=== PATIENT | female | born 1945 | race Caucasian/White ===

== ENCOUNTER 2021-07-12 11:46 | Outpatient (CLI) | payer MEDICARE ==
[2021-07-12 13:25] LABS: #Basophils 0.1 10x3/uL (0.0-0.2); #Eosinphils 0.1 10x3/uL (0.0-0.5); #Monocytes 0.4 10x3/uL (0.0-1.1); #Neutrophils 2.7 10x3/uL (1.5-8.4); %Basophils 1.3 % (0.0-2.0); %Eosinophils 1.8 % (0.0-6.0); %Lymphocytes 39.9 % (18.0-47.0); %Monocytes 7.7 % (0.0-10.0); %Neutrophils 49.1 % (40.0-75.0); Hemoglobin 12.5 g/dL (12.0-15.5); Mean Corpuscular HGB CONC 31.7 g/dL (32.0-36.0); Mean Corpuscular Hemoglobin 32.1 pg (27.0-33.0); Mean Corpuscular Volume 101.3 fl (81.6-98.3); Mean Platelet Volume 9.2 fl (7.4-10.4); Platelet Count 313 10x3/uL (150-450); RBC Distribution Width 13.1 % (11.5-14.5); Red Blood Cell (RBC) Count 3.89 10x6/uL (3.90-5.03); White Blood Cell (WBC) Count 5.5 10x3/uL (3.5-10.5)
[2021-07-12 13:44] LABS: Anion Gap 14 mmol/L (10-20); BUN (Urea Nitrogen) 17 mg/dL (9.8-20.1); Calc. Creatinine Clearance 0 mL/min (70-130); Calcium 9.9 mg/dL (7.8-10.44); Carbon Dioxide 28 mmol/L (23-31); Chloride 107 mmol/L (98-107); Glucose 97 mg/dL (83-110); Potassium 5.2 mmol/L (3.5-5.1); Sodium 144 mmol/L (136-145)
[2021-07-13 01:42] LABS: SARS-CoV-2 PCR by NAA Not Detected (NotDetected)
== END 2021-07-12 11:47 | disposition home or self-care (01) ==
LOC: LABBT 11:46
PROVIDERS: ATTEND Specialist
DX: Z01.818 Encounter for other preprocedural examination (principal); K64.8 Other hemorrhoids; Z20.822 Contact with and (suspected) exposure to COVID-19
CPT/HCPCS: 71046; 80048; 85025; 93005; U0003; U0005; 93010

== ENCOUNTER 2021-07-17 10:16 | Day surgery (SDC) | payer MEDICARE ==
[2021-07-16 13:39] VITALS: BMI 24.4
[2021-07-17] MEDS ORDERED: Acetaminophen 500 MG TAB ONE (10:25)
[2021-07-17] MEDS ORDERED: Ketorolac Tromethamine 30 MG/ML VIAL ONE (10:26)
[2021-07-17] MEDS ORDERED: ceFAZolin 2 GM/DEX 5% 100 ML BAG ONE (10:26)
[2021-07-17] MEDS ORDERED: Bupivacaine 0.25% HCL 30 ML VIAL ONE (15:08)
[2021-07-17] MEDS ORDERED: Lidocaine 1% w/Epinephrine 1:100K 20 ML VIAL ONE (15:08)
[2021-07-17] MEDS ORDERED: Fentanyl 100 MCG/2 ML VIAL ONE (16:35)
[2021-07-17] MEDS ORDERED: Rocuronium Bromide 10 MG/ML (10ML VIAL) ONE (16:36)
[2021-07-17] MEDS ORDERED: PROPOFOL 200 MG/20 ML VIAL ONE (16:36)
[2021-07-17] MEDS ORDERED: Lidocaine 1% PF 5 ML VIAL ONE (16:36)
[2021-07-17] MEDS ORDERED: Ondansetron PF 4 MG/2 ML Vial ONE (16:36)
[2021-07-17] MEDS ORDERED: Dexamethasone 20 MG/5 ML VIAL ONE (16:36)
[2021-07-17] MEDS ORDERED: PHENYLEPHRINE-NS 100 MCG/ML 10 ML SYRINGE ONE (16:36)
[2021-07-17] MEDS ORDERED: SUGAMMADEX SODIUM 200 MG/2 ML VIAL ONE (16:46)
[2021-07-17] MEDS ORDERED: Meperidine HCl/PF 25 MG/ML VIAL ONE (17:52)
[2021-07-17] MEDS ORDERED: Promethazine HCl 25 MG/ML VIAL ONE (18:53)
[2021-07-17] MEDS ORDERED: Ondansetron ODT 4 MG TAB ONE (19:10)
== END 2021-07-17 19:43 | disposition home or self-care (01) ==
LOC: SDC 10:16
PROVIDERS: ATTEND Specialist
PROC: 06BY3ZC Excision of Hemorrhoidal Plexus, Percutaneous Approach (ICD-10-PCS; principal; 2021-07-17)
DX: K64.8 Other hemorrhoids (principal); Z88.1 Allergy status to other antibiotic agents; Z88.2 Allergy status to sulfonamides
CPT/HCPCS: J1100; J1885; J2175; J2405; J2550; J2704; J3010; Q0162; S0020

== ENCOUNTER 2021-08-15 13:37 | Outpatient (CLI) | payer MEDICARE ==
[2021-08-15 15:36] LABS: #Eosinphils 0.3 10x3/uL (0.0-0.5); #Monocytes 0.5 10x3/uL (0.0-1.1); #Neutrophils 4.9 10x3/uL (1.5-8.4); %Basophils 0.2 % (0.0-2.0); %Eosinophils 3.1 % (0.0-6.0); %Lymphocytes 30.2 % (18.0-47.0); %Monocytes 6.3 % (0.0-10.0); Hemoglobin 12.7 g/dL (12.0-15.5); Mean Corpuscular HGB CONC 31.8 g/dL (32.0-36.0); Mean Corpuscular Hemoglobin 32.2 pg (27.0-33.0); Mean Corpuscular Volume 101.5 fl (81.6-98.3); Mean Platelet Volume 9.1 fl (7.4-10.4); Platelet Count 314 10x3/uL (150-450); RBC Distribution Width 12.9 % (11.5-14.5); Red Blood Cell (RBC) Count 3.94 10x6/uL (3.90-5.03); White Blood Cell (WBC) Count 8.1 10x3/uL (3.5-10.5)
[2021-08-15 15:58] LABS: Anion Gap 12 mmol/L (10-20); BUN (Urea Nitrogen) 17 mg/dL (9.8-20.1); Calc. Creatinine Clearance 0 mL/min (70-130); Calcium 9.7 mg/dL (7.8-10.44); Carbon Dioxide 29 mmol/L (23-31); Chloride 104 mmol/L (98-107); Glucose 82 mg/dL (83-110); Sodium 140 mmol/L (136-145)
[2021-08-16 00:40] LABS: SARS-CoV-2 PCR by NAA Not Detected (NotDetected)
== END 2021-08-15 13:38 | disposition home or self-care (01) ==
LOC: LABBT 13:37
PROVIDERS: ATTEND Specialist
DX: Z01.818 Encounter for other preprocedural examination (principal); K40.20 Bilateral inguinal hernia, without obstruction or gangrene, not specified as recurrent; Z20.822 Contact with and (suspected) exposure to COVID-19
CPT/HCPCS: 71046; 80048; 85025; 93005; U0003; U0005; 93010

== ENCOUNTER 2021-08-21 13:36 | Outpatient (CLI) | payer MEDICARE ==
[2021-08-22 11:24] LABS: SARS-CoV-2 PCR by NAA Not Detected (NotDetected)
== END 2021-08-21 13:37 | disposition home or self-care (01) ==
LOC: LABBT 13:36
PROVIDERS: ATTEND Specialist
DX: Z01.812 Encounter for preprocedural laboratory examination (principal); K40.20 Bilateral inguinal hernia, without obstruction or gangrene, not specified as recurrent; Z20.822 Contact with and (suspected) exposure to COVID-19
CPT/HCPCS: U0003; U0005

== ENCOUNTER 2021-08-24 09:50 | Day surgery (SDC) | payer MEDICARE ==
[2021-08-16 14:42] VITALS: BMI 24.3
[2021-08-24] MEDS ORDERED: ceFAZolin 2 GM/DEX 5% 100 ML BAG ONE (11:22)
[2021-08-24] MEDS ORDERED: Acetaminophen 500 MG TAB ONE (11:23)
[2021-08-24] MEDS ORDERED: Ketorolac Tromethamine 30 MG/ML VIAL ONE ×2 (11:24→12:50)
[2021-08-24] MEDS ORDERED: Lidocaine 1% w/Epinephrine 1:100K 20 ML VIAL ONE (12:27)
[2021-08-24] MEDS ORDERED: Bupivacaine 0.25% 10 ML VIAL ONE ×2 (12:27)
[2021-08-24] MEDS ORDERED: Lidocaine 2% Jelly 5 ML TUBE ONE (12:35)
[2021-08-24] MEDS ORDERED: Midazolam HCl 2 mg/2 ml Vial ONE (12:35)
[2021-08-24] MEDS ORDERED: Fentanyl 100 MCG/2 ML VIAL ONE (12:35)
[2021-08-24] MEDS ORDERED: Dexamethasone 20 MG/5 ML VIAL ONE (12:50)
[2021-08-24] MEDS ORDERED: PHENYLEPHRINE-NS 100 MCG/ML 10 ML SYRINGE ONE (12:50)
[2021-08-24] MEDS ORDERED: Rocuronium Bromide 10 MG/ML (10ML VIAL) ONE (12:50)
[2021-08-24] MEDS ORDERED: Ondansetron PF 4 MG/2 ML Vial ONE (12:50)
[2021-08-24] MEDS ORDERED: PROPOFOL 200 MG/20 ML VIAL ONE (12:50)
[2021-08-24] MEDS ORDERED: Lidocaine 1% PF 5 ML VIAL ONE (12:50)
[2021-08-24] MEDS ORDERED: Glycopyrrolate 0.2 MG/ML 5 ML SYRINGE ONE (12:50)
[2021-08-24] MEDS ORDERED: Promethazine HCl 25 MG/ML VIAL ONE (17:21)
== END 2021-08-24 18:50 | disposition home or self-care (01) ==
LOC: SDC 09:50
PROVIDERS: ATTEND Specialist
PROC: 0YUA4JZ Supplement Bilateral Inguinal Region with Synthetic Substitute, Percutaneous Endoscopic Approach (ICD-10-PCS; principal; 2021-08-24)
DX: K40.20 Bilateral inguinal hernia, without obstruction or gangrene, not specified as recurrent (principal); Z88.1 Allergy status to other antibiotic agents; Z88.2 Allergy status to sulfonamides
CPT/HCPCS: 49650; C1781; J1100; J1885; J2250; J2405; J2550; J2704; J3010; S0020

== ENCOUNTER 2023-03-27 09:43 | Outpatient (CLI) | payer MEDICARE ==
[2023-03-27 11:38] LABS: Prothrombin Time 10.5 sec (9.5-12.1)
[2023-03-27 11:44] LABS: Anion Gap 11 mmol/L (10-20); BUN (Urea Nitrogen) 20 mg/dL (9.8-20.1); Calc. Creatinine Clearance 0 mL/min (70-130); Calcium 9.7 mg/dL (7.8-10.44); Carbon Dioxide 29 mmol/L (23-31); Chloride 106 mmol/L (98-107); Estimated GFR 64; Glucose 96 mg/dL (83-110); Potassium 4.4 mmol/L (3.5-5.1); Sodium 142 mmol/L (136-145)
[2023-03-27 12:05] LABS: #Basophils 0.1 10x3/uL (0.0-0.2); #Eosinphils 0.1 10x3/uL (0.0-0.5); #Monocytes 0.4 10x3/uL (0.0-1.1); #Neutrophils 2.7 10x3/uL (1.5-8.4); %Basophils 1.1 % (0.0-2.0); %Lymphocytes 27.6 % (18.0-47.0); %Monocytes 9.5 % (0.0-10.0); %Neutrophils 58.6 % (40.0-75.0); Hemoglobin 13.1 g/dL (12.0-15.5); Mean Corpuscular Volume 100.2 fl (81.6-98.3); Platelet Count 311 10x3/uL (150-450); RBC Distribution Width 13.1 % (11.5-14.5); Red Blood Cell (RBC) Count 4.09 10x6/uL (3.90-5.03); White Blood Cell (WBC) Count 4.6 10x3/uL (3.5-10.5)
== END 2023-03-27 09:44 | disposition home or self-care (01) ==
LOC: LABBT 09:43
PROVIDERS: ATTEND Orthopaedic Surgery
DX: Z01.818 Encounter for other preprocedural examination (principal); M17.11 Unilateral primary osteoarthritis, right knee
CPT/HCPCS: 80048; 85025; 85610; 87081; 93005; 93010

== ENCOUNTER 2023-04-10 16:15 | Inpatient (IN) | payer OTHER, MEDICARE ==
[2023-04-10] MEDS ORDERED: Morphine 4 MG/ML VIAL ONE (16:53)
[2023-04-10] MEDS ORDERED: Ketamine 50 MG/ML (10ML VIAL) ONE (18:02)
[2023-04-10 18:10] LABS: #Basophils 0.1 thou/uL (0.0-0.2); #Eosinphils 0.2 thou/uL (0.0-0.7); #Monocytes 0.7 thou/uL (0.11-0.59); #Neutrophils 6.8 thou/uL (1.40-6.50); %Basophils 0.8 % (0.0-1.0); %Eosinophils 2.5 % (0.0-10.0); %Lymphocytes 14.2 % (21.0-51.0); %Monocytes 7.3 % (0.0-10.0); %Neutrophils 74.5 % (42.0-75.0); Hemoglobin 11.3 g/dL (12.0-16.0); Mean Corpuscular HGB CONC 32.7 g/dL (32.0-36.0); Mean Corpuscular Volume 101.2 fl (78.0-98.0); Mean Platelet Volume 8.3 fL (7.4-10.4); Platelet Count 416 10x3/uL (130-400); RBC Distribution Width 13.2 % (11.5-14.5); Red Blood Cell (RBC) Count 3.42 mill/uL (4.20-5.40); White Blood Cell (WBC) Count 9.1 10x3/uL (4.8-10.8)
[2023-04-10 18:33] LABS: ALT (SGPT) 46 U/L (8-55); AST (SGOT) 32 U/L (5-34); Albumin 3.8 g/dL (3.4-4.8); Alkaline Phosphatase 134 U/L (40-110); Anion Gap 10 mmol/L (10-20); BUN (Urea Nitrogen) 25 mg/dL (9.8-20.1); Bilirubin, Total 0.4 mg/dL (0.2-1.2); Calc. Creatinine Clearance 0 mL/min (70-130); Calcium 9.5 mg/dL (7.8-10.44); Carbon Dioxide 29 mmol/L (23-31); Chloride 104 mmol/L (98-107); Estimated GFR 73; Glucose 114 mg/dL (83-110); Potassium 4.4 mmol/L (3.5-5.1); Protein, Total 6.8 g/dL (5.8-8.1); Sodium 139 mmol/L (136-145)
[2023-04-10] MEDS ORDERED: CEFAZOLIN 2 GM in Sodium Chloride 0.9% 100 ML IVPB SCH (21:17)
[2023-04-10] MEDS ORDERED: Morphine 2 MG/ML VIAL SLOW IVP PRN (21:17)
[2023-04-10] MEDS ORDERED: Bisacodyl 10 MG SUPP PR PRN (21:17)
[2023-04-10] MEDS ORDERED: Milk Of Magnesia 30 ML UDCUP PO PRN (21:17)
[2023-04-10] MEDS ORDERED: Acetaminophen 325 MG TAB PO PRN (21:17)
[2023-04-10] MEDS ORDERED: Ondansetron PF 4 MG/2 ML Vial IVP PRN (21:17)
[2023-04-10] MEDS ORDERED: Promethazine HCl 25 MG/ML VIAL IM PRN (21:17)
[2023-04-10] MEDS ORDERED: fentaNYL 50 mcg/mL 1 mL Vial SLOW IVP PRN (21:17)
[2023-04-10] MEDS ORDERED: Communication Order-Pharmacy FS SCH (21:17)
[2023-04-10] MEDS ORDERED: Morphine 4 MG/ML VIAL SLOW IVP PRN (21:17)
[2023-04-10] MEDS ORDERED: HYDROcodone/Acetaminophen 5/325 mg Tablet PO PRN (21:17)
[2023-04-10] MEDS ORDERED: traMADol HCl 50 MG TAB PO PRN ×2 (21:17)
[2023-04-10 22:55] VITALS: BMI 26.6
[2023-04-11] MEDS ORDERED: fentaNYL 50 mcg/mL 1 mL Vial ONE ×3 (11:40→15:07)
[2023-04-11] MEDS ORDERED: Midazolam HCl 2 mg/2 ml Vial ONE (11:40)
[2023-04-11] MEDS ORDERED: Ropivacaine 0.5% HCl/PF (150 MG/30 ML VIAL) ONE (11:40)
[2023-04-11] MEDS ORDERED: Ropivacaine 0.2% 550 ML 550 ML NERVE BLCK SCH (12:00)
[2023-04-11] MEDS ORDERED: Zolpidem Tartrate 5 MG TAB PO PRN (12:00)
[2023-04-11] MEDS ORDERED: fentaNYL 50 mcg/mL 1 mL Vial SLOW IVP PRN (12:01)
[2023-04-11] MEDS ORDERED: HYDROcodone/Acetaminophen 10/325 mg Tablet PO PRN ×2 (12:15)
[2023-04-11] MEDS ORDERED: Sodium Chloride 0.9% 100 ML ONE (12:32)
[2023-04-11] MEDS ORDERED: CEFAZOLIN 2 GM VIAL ONE (12:32)
[2023-04-11] MEDS ORDERED: Ondansetron PF 4 MG/2 ML Vial ONE (13:51)
[2023-04-11] MEDS ORDERED: PROPOFOL 200 MG/20 ML VIAL ONE (13:51)
[2023-04-11] MEDS ORDERED: PHENYLEPHRINE-NS 100 MCG/ML 10 ML SYRINGE ONE (13:51)
[2023-04-11] MEDS ORDERED: Dexamethasone 20 MG/5 ML VIAL ONE (13:51)
[2023-04-11] MEDS: Ketorolac Tromethamine 30 MG/ML VIAL IVP SCH ×3 (14:15→21:03)
[2023-04-11] MEDS ORDERED: Promethazine HCl 25 MG/ML VIAL IM PRN (15:08)
[2023-04-11] MEDS ORDERED: HYDROmorphone 2 MG/ML VIAL SLOW IVP PRN (15:08)
[2023-04-11] MEDS ORDERED: Ondansetron HCl/PF 4 MG/2 ML Vial IVP PRN (15:08)
[2023-04-11] MEDS ORDERED: Ketorolac Tromethamine 30 MG/ML VIAL ONE (15:17)
[2023-04-11] MEDS: CEFAZOLIN 2 GM in Sodium Chloride 0.9% 100 ML IVPB SCH (21:03)
[2023-04-12] MEDS: Ketorolac Tromethamine 30 MG/ML VIAL IVP SCH ×4 (03:53→20:40)
[2023-04-12] MEDS: CEFAZOLIN 2 GM in Sodium Chloride 0.9% 100 ML IVPB SCH (05:05)
[2023-04-13] MEDS: Ketorolac Tromethamine 30 MG/ML VIAL IVP SCH ×2 (03:37→09:59)
[2023-04-13 08:37] VITALS: BP 144/66; TEMP 98.2
== END 2023-04-13 10:45 | disposition home or self-care (01) | DRG 512 ==
LOC: ERS 16:15 → SJJU 19:35
PROVIDERS: ADMIT Orthopaedic Surgery; ATTEND Orthopaedic Surgery
PROC: 0PSJ04Z Reposition Left Radius with Internal Fixation Device, Open Approach (ICD-10-PCS; principal; 2023-04-11)
DX: S52.532A Colles' fracture of left radius, initial encounter for closed fracture (principal); S52.552A Other extraarticular fracture of lower end of left radius, initial encounter for closed fracture; Z96.651 Presence of right artificial knee joint; W01.0XXA Fall on same level from slipping, tripping and stumbling without subsequent striking against object, initial encounter; Z98.890 Other specified postprocedural states; Z79.899 Other long term (current) drug therapy; Z88.8 Allergy status to other drugs, medicaments and biological substances
CPT/HCPCS: 25605; 36415; 80053; 85025; 86850; 86900; 86901; 99152; 99156; A4306; C1713; G0390; J1100; J1885; J2250; J2270; J2405; J2704; J2795; J3010; J3490

== ENCOUNTER 2023-05-29 17:03 | Emergency (ER) | payer MEDICARE ==
[2023-05-29] MEDS ORDERED: Ketorolac Tromethamine 30 MG/ML VIAL ONE (18:52)
== END 2023-05-29 20:09 | disposition home or self-care (01) ==
LOC: ERS 17:03
DX: S42.354A Nondisplaced comminuted fracture of shaft of humerus, right arm, initial encounter for closed fracture (principal); M25.411 Effusion, right shoulder; W18.30XA Fall on same level, unspecified, initial encounter
CPT/HCPCS: 96372; J1885

== ENCOUNTER 2023-09-26 11:03 | Outpatient (CLI) | payer MEDICARE ==
[2023-09-26 12:13] LABS: #Basophils 0.1 10x3/uL (0.0-0.2); #Eosinphils 0.1 10x3/uL (0.0-0.5); #Monocytes 0.5 10x3/uL (0.0-1.1); #Neutrophils 4.6 10x3/uL (1.5-8.4); %Basophils 0.9 % (0.0-2.0); %Eosinophils 1.4 % (0.0-6.0); %Lymphocytes 24.1 % (18.0-47.0); %Monocytes 7.5 % (0.0-10.0); Hematocrit 43.2 % (34.9-44.5); Hemoglobin 14.1 g/dL (12.0-15.5); Mean Corpuscular HGB CONC 32.6 g/dL (32.0-36.0); Mean Corpuscular Hemoglobin 32.8 pg (27.0-33.0); Mean Corpuscular Volume 100.5 fl (81.6-98.3); Mean Platelet Volume 8.7 fl (7.4-10.4); Platelet Count 292 10x3/uL (150-450); RBC Distribution Width 13.4 % (11.5-14.5)
[2023-09-26 12:22] LABS: Prothrombin Time 10.5 sec (9.5-12.1)
[2023-09-26 12:48] LABS: Anion Gap 14 mmol/L (10-20); BUN (Urea Nitrogen) 22 mg/dL (9.8-20.1); Calc. Creatinine Clearance 0 mL/min (70-130); Calcium 9.7 mg/dL (7.8-10.44); Carbon Dioxide 26 mmol/L (23-31); Chloride 105 mmol/L (98-107); Estimated GFR 69; Glucose 92 mg/dL (83-110); Potassium 4.3 mmol/L (3.5-5.1); Sodium 141 mmol/L (136-145)
== END 2023-09-26 11:04 | disposition home or self-care (01) ==
LOC: LABBT 11:03
PROVIDERS: ATTEND Orthopaedic Surgery
DX: Z01.818 Encounter for other preprocedural examination (principal); M17.12 Unilateral primary osteoarthritis, left knee
CPT/HCPCS: 80048; 85025; 85610; 87081; 93005; 93010

== ENCOUNTER 2023-10-30 08:43 | Outpatient (CLI) | payer MEDICARE ==
[2023-10-30 09:43] LABS: #Basophils 0.1 10x3/uL (0.0-0.2); #Eosinphils 0.1 10x3/uL (0.0-0.5); #Monocytes 0.5 10x3/uL (0.0-1.1); #Neutrophils 2.7 10x3/uL (1.5-8.4); %Basophils 1.2 % (0.0-2.0); %Eosinophils 1.9 % (0.0-6.0); %Lymphocytes 33.5 % (18.0-47.0); %Monocytes 10.5 % (0.0-10.0); %Neutrophils 52.7 % (40.0-75.0); Hematocrit 46.5 % (34.9-44.5); Hemoglobin 15.3 g/dL (12.0-15.5); Mean Corpuscular HGB CONC 32.9 g/dL (32.0-36.0); Mean Corpuscular Volume 100.2 fl (81.6-98.3); Mean Platelet Volume 8.8 fl (7.4-10.4); Platelet Count 323 10x3/uL (150-450); RBC Distribution Width 13.4 % (11.5-14.5); Red Blood Cell (RBC) Count 4.64 10x6/uL (3.90-5.03); White Blood Cell (WBC) Count 5.1 10x3/uL (3.5-10.5)
[2023-10-30 10:13] LABS: Prothrombin Time 10.5 sec (9.5-12.1)
[2023-10-30 10:25] LABS: Anion Gap 14 mmol/L (10-20); BUN (Urea Nitrogen) 20 mg/dL (9.8-20.1); Calc. Creatinine Clearance 0 mL/min (70-130); Calcium 9.9 mg/dL (7.8-10.44); Carbon Dioxide 28 mmol/L (23-31); Chloride 105 mmol/L (98-107); Estimated GFR 59; Glucose 85 mg/dL (83-110); Sodium 142 mmol/L (136-145)
== END 2023-10-30 08:44 | disposition home or self-care (01) ==
LOC: LABBT 08:43
PROVIDERS: ATTEND Orthopaedic Surgery
DX: Z01.812 Encounter for preprocedural laboratory examination (principal); M17.12 Unilateral primary osteoarthritis, left knee; Z96.652 Presence of left artificial knee joint
CPT/HCPCS: 80048; 85025; 85610; 87081

== ENCOUNTER 2023-11-04 05:33 | Inpatient (IN) | payer MEDICARE ==
[2023-11-04] MEDS ORDERED: Tranexamic Acid 1,000 MG/10 ML VIAL ONE (05:56)
[2023-11-04] MEDS ORDERED: Sodium Chloride 0.9% 100 ML ONE ×2 (05:56→06:54)
[2023-11-04] MEDS ORDERED: Vancomycin 1 GM/200 ML (FROZEN) BAG ONE (05:56)
[2023-11-04] MEDS ORDERED: Midazolam HCl 2 mg/2 ml Vial ONE (06:12)
[2023-11-04] MEDS ORDERED: fentaNYL PF 100 MCG/2 ML SYRINGE ONE (06:12)
[2023-11-04] MEDS ORDERED: PROPOFOL 20 ML ONE (06:12)
[2023-11-04] MEDS ORDERED: Ondansetron PF 4 MG/2 ML Vial ONE (06:13)
[2023-11-04] MEDS ORDERED: Dexamethasone 4 mg/ml Vial ONE (06:13)
[2023-11-04] MEDS ORDERED: fentaNYL 50 mcg/mL 1 mL Vial ONE ×4 (06:13→09:08)
[2023-11-04] MEDS ORDERED: EPINEPHrine 1 MG/ML VIAL ONE (06:28)
[2023-11-04] MEDS ORDERED: Bupivacaine 0.25% HCL 30 ML VIAL ONE (06:28)
[2023-11-04] MEDS ORDERED: CEFAZOLIN 2 GM VIAL ONE (06:54)
[2023-11-04] MEDS ORDERED: fentaNYL 50 mcg/mL 1 mL Vial SLOW IVP PRN (07:21)
[2023-11-04] MEDS ORDERED: Zolpidem Tartrate 5 MG TAB PO PRN (07:30)
[2023-11-04] MEDS ORDERED: traMADol HCl 50 MG TAB PO PRN ×2 (07:30)
[2023-11-04] MEDS ORDERED: Promethazine HCl 25 MG/ML VIAL IM PRN ×3 (07:30→09:58)
[2023-11-04] MEDS ORDERED: Ropivacaine 0.2% 550 ML 550 ML NERVE BLCK SCH (07:30)
[2023-11-04] MEDS ORDERED: HYDROcodone/Acetaminophen 10/325 mg Tablet PO PRN (07:30)
[2023-11-04] MEDS ORDERED: Ondansetron PF 4 MG/2 ML Vial IVP PRN ×2 (07:30→09:58)
[2023-11-04] MEDS ORDERED: Phenylephrine 10 MG/ML VIAL ONE (07:41)
[2023-11-04] MEDS ORDERED: Sodium Chloride 0.9% 200 ML ONE (07:44)
[2023-11-04] MEDS ORDERED: Glycopyrrolate 0.2 MG/ML 5 ML SYRINGE ONE (07:45)
[2023-11-04] MEDS ORDERED: Ondansetron HCl/PF 4 MG/2 ML Vial IVP PRN (08:06)
[2023-11-04] MEDS ORDERED: Bupivacaine PF 0.5% 30 ML VIAL ONE (08:27)
[2023-11-04] MEDS ORDERED: Meperidine HCl/PF 25 MG (1 mL) VIAL ONE (09:09)
[2023-11-04] MEDS ORDERED: Ketorolac Tromethamine 30 MG (1 mL) VIAL ONE (09:41)
[2023-11-04] MEDS ORDERED: diphenhydrAMINE 25 MG CAP PO PRN (09:58)
[2023-11-04] MEDS ORDERED: Acetaminophen 325 MG TAB PO PRN (09:58)
[2023-11-04] MEDS: Ketorolac Tromethamine 30 MG (1 mL) VIAL IVP SCH (12:43)
[2023-11-04] MEDS: Sodium Chloride 0.9% 1,000 ML IV SCH (12:49)
[2023-11-04] MEDS: Aspirin 81 mg Enteric Coated Tablet PO SCH ×2 (13:25→21:29)
[2023-11-04 16:13] VITALS: BMI 25.5
[2023-11-04] MEDS: CEFAZOLIN 2 GM in Sodium Chloride 0.9% 100 ML IVPB SCH (16:30)
[2023-11-05 04:17] LABS: Hematocrit 34.6 % (36.0-47.0); Hemoglobin 11.4 g/dL (12.0-16.0); Mean Corpuscular HGB CONC 32.9 g/dL (32.0-36.0); Mean Corpuscular Hemoglobin 33.1 pg (27.0-31.0); Mean Corpuscular Volume 100.6 fl (78.0-98.0); Mean Platelet Volume 8.9 fL (7.4-10.4); Platelet Count 215 10x3/uL (130-400); RBC Distribution Width 13.6 % (11.5-14.5); Red Blood Cell (RBC) Count 3.44 mill/uL (4.20-5.40); White Blood Cell (WBC) Count 9.3 10x3/uL (4.8-10.8)
[2023-11-05] MEDS: Multivitamin W/ Minerals 1 TAB PO SCH (09:07)
[2023-11-05] MEDS: Senokot S 8.6-50 MG TAB PO SCH (09:07)
[2023-11-05] MEDS: Ferrous Gluconate 324 MG TAB PO SCH (09:07)
[2023-11-05] MEDS ORDERED: AMOXICILLIN 500 MG PO PRN (09:12)
[2023-11-05] MEDS ORDERED: AMOXicillin 250 MG CAP PO PRN (09:14)
[2023-11-05] MEDS: HYDROcodone/Acetaminophen 10/325 mg Tablet PO PRN (09:17)
[2023-11-05] MEDS: Docusate 100 MG CAP PO SCH (18:32)
[2023-11-05] MEDS: Magnesium Oxide 250 MG TAB PO SCH (20:34)
[2023-11-05] MEDS ORDERED: MAGNESIUM OXIDE 500 MG PO SCH (21:00)
[2023-11-05] MEDS ORDERED: cycloSPORINE 0.05% Ophthalmic Droperette EA EYE SCH (21:00)
[2023-11-05] MEDS: cycloSPORINE 0.05% Ophthalmic Droperette EA EYE SCH (21:52)
[2023-11-06] MEDS: Zolpidem Tartrate 5 MG TAB PO PRN (01:30)
[2023-11-06 04:43] LABS: Hemoglobin 11.1 g/dL (12.0-16.0); Mean Corpuscular HGB CONC 32.6 g/dL (32.0-36.0); Mean Corpuscular Hemoglobin 32.9 pg (27.0-31.0); Mean Corpuscular Volume 100.9 fl (78.0-98.0); Mean Platelet Volume 9.1 fL (7.4-10.4); Platelet Count 217 10x3/uL (130-400); RBC Distribution Width 13.9 % (11.5-14.5); Red Blood Cell (RBC) Count 3.37 mill/uL (4.20-5.40); White Blood Cell (WBC) Count 8.5 10x3/uL (4.8-10.8)
[2023-11-06 07:42] VITALS: BP 130/74; TEMP 98.2
[2023-11-06] MEDS: Vit A,C & E/Lutein/Minerals Tablet PO SCH (08:53)
[2023-11-06] MEDS: CO Q-10 CAPSULE 100 MG PO SCH (08:53)
[2023-11-06] MEDS: Fish Oil 1,000 MG CAP PO SCH (08:53)
[2023-11-06] MEDS: Multivitamin W/ Minerals 1 TAB PO SCH (08:54)
[2023-11-06] MEDS: Docusate 100 MG CAP PO SCH (08:54)
[2023-11-06] MEDS ORDERED: Non-Formulary Item 1 EACH (Mv-Mn/Folic Ac/Calcium/Vit K1 [Women's 50 Plus Multivit Tab] 1 PO SCH (09:00)
[2023-11-06] MEDS ORDERED: Non-Formulary Item 1 EACH (Vitamin D3/Vitamin K2 (Mk4) [K2 Plus D3 Tablet] 1 EACH Tablet) PO SCH (09:00)
[2023-11-06] MEDS ORDERED: [UNRECOGNIZED DRUG - OTHER] PO SCH (09:00)
== END 2023-11-06 12:45 | disposition home or self-care (01) | DRG 470 ==
LOC: SDC 05:33 → SJJU 11:14 → OBSVTOIN 11-05 09:14
PROVIDERS: ADMIT Orthopaedic Surgery; ATTEND Orthopaedic Surgery
PROC: 0SRD0J9 Replacement of Left Knee Joint with Synthetic Substitute, Cemented, Open Approach (ICD-10-PCS; principal; 2023-11-04)
DX: M17.12 Unilateral primary osteoarthritis, left knee (principal); Z96.651 Presence of right artificial knee joint; Z79.82 Long term (current) use of aspirin; Z79.891 Long term (current) use of opiate analgesic; Z79.899 Other long term (current) drug therapy; Z98.42 Cataract extraction status, left eye; Z98.41 Cataract extraction status, right eye
CPT/HCPCS: 36415; 85027; 96365; 96375; 96376; A4306; C1713; C1776; G0378; J0171; J0665; J1100; J1885; J2175; J2250; J2371; J2405; J2704; J2795; J3010; J3370-JW; J3490; J7050